=== PATIENT | female | born 1975 | race Asian ===

== ENCOUNTER 2023-11-23 07:05 | Inpatient (IN) | payer BC ==
[~2023-11-23] VITALS: Ht 160 cm; Wt 49.4 kg
[2023-11-23 07:05] VITALS: BP_SYST 97; PULSE 84; RESP 17; TEMP 98.6; O2SAT 99
[2023-11-23] MEDS: NACL 0.9% 1,000 ML IV ONE (09:00)
[2023-11-23 09:08] LABS: BASOPHILS % (AUTO) 0.1 % (0.0-2.0); EOSINOPHILS % (AUTO) 0.3 % (0.0-4.0); HEMATOCRIT 38.6 % (36-48); HEMOGLOBIN 13.3 g/dL (12.0-16.0); LYMPHOCYTES # (AUTO) 0.6 K/uL (1.0-5.5); LYMPHOCYTES % (AUTO) 6.6 % (20.5-51.5); MEAN CORPUSCULAR HEMOGLOBIN 31 pg (27-31); MEAN CORPUSCULAR HGB CONC 34 % (32-36); MEAN CORPUSCULAR VOLUME 91 fL (79.0-98.0); MONOCYTES # (AUTO) 0.4 K/uL (0.0-1.0); NEUTROPHILS # (AUTO) 8.7 K/uL (1.8-7.7); PLATELET COUNT (AUTO) 256 K/uL (130-430); RED BLOOD CELL COUNT(AUTO) 4.25 MIL/uL (4.2-6.2); WHITE BLOOD COUNT (AUTO) 9.8 K/uL (4.8-10.8)
[2023-11-23 09:12] LABS: SERUM HCG (QUALITATIVE) NEGATIVE (NEGATIVE)
[2023-11-23 09:27] LABS: CALCIUM 8.2 mg/dL (8.4-11.0); CREATININE 0.59 mg/dL (0.55-1.30); POTASSIUM 3.7 mmol/L (3.5-5.1); PROTHROMBIN TIME 10.6 SECS (9.5-12.5)
[2023-11-23 10:03] LABS: ALBUMIN 3.1 g/dL (3.4-4.8); BILIRUBIN,DIRECT 0.3 mg/dL (0.0-0.3); TOTAL BILIRUBIN 1.7 mg/dL (0.0-1.0); TOTAL PROTEIN, SERUM 6.7 g/dL (6.4-8.3)
[2023-11-23] MEDS ORDERED: PIPERACILLIN/TAZOBACTAM 3.375 GM/VIAL (ZOSYN) IV ONE ×2 (10:28→14:40)
[2023-11-23] MEDS: MORPHINE 4 MG INJ. 4 MG/ML VIAL IVP ONE (10:42)
[2023-11-23] MEDS: ONDANSETRON HCL 4 MG/2 ML VIAL IVP ONE (10:45)
[2023-11-23] MEDS: PIPERACILLIN/TAZO 3.375 GM in NS 50 ML IV ONE (10:51)
[2023-11-23] MEDS: D5LR 1,000 ML IV SCH (12:29)
[2023-11-23] MEDS ORDERED: ePHEDrine sulfate 50 MG/ML VIAL ONE (14:40)
[2023-11-23] MEDS ORDERED: ROCURONIUM BROMIDE 10 MG/ML (ZEMURON) ONE (14:40)
[2023-11-23] MEDS ORDERED: DEXAMETHASONE SOD PHOSPHATE 4 MG/ML VIAL ONE (14:40)
[2023-11-23] MEDS ORDERED: PROPOFOL 200MG/ 20ML VIAL (DIPRIVAN) IV ONE (14:40)
[2023-11-23] MEDS ORDERED: SUCCINYLCHOLINE CHLORIDE 20 MG/ML(QUELICIN) ONE (14:40)
[2023-11-23] MEDS ORDERED: ONDANSETRON HCL 4 MG/2 ML VIAL ONE (14:40)
[2023-11-23] MEDS ORDERED: LR 1,000 ML IV.SOLN IV ONE (14:40)
[2023-11-23] MEDS ORDERED: SEVOFLURANE 15 MIN GAS INH ONE (14:40)
[2023-11-23] MEDS ORDERED: NS 1000 ML IV.SOLN IV ONE ×2 (14:40)
[2023-11-23] MEDS ORDERED: BUPIVACAINE /PF 0.25% 30 ML VIAL INJ ONE (14:40)
[2023-11-23] MEDS ORDERED: WATER FOR IRRIGATION,STERILE 1,000 ML IRRIG.SOLN IR ONE (14:40)
[2023-11-23] MEDS ORDERED: MORPHINE 4 MG INJ. 4 MG/ML VIAL IVP PRN ×2 (15:30)
[2023-11-23] MEDS ORDERED: NALOXONE HCL 0.4 MG/ML AMP (NARCAN) IVP PRN ×2 (15:30→15:45)
[2023-11-23] MEDS ORDERED: HYDROmorphone 1 MG/ML INJ. CARTRIDGE IVP PRN (15:30)
[2023-11-23] MEDS ORDERED: ACETAMINOPHEN 325 MG TABLET PO PRN (15:45)
[2023-11-23] MEDS ORDERED: ONDANSETRON HCL 4 MG/2 ML VIAL IVP PRN (15:45)
[2023-11-23] MEDS ORDERED: KETOROLAC TROMETHAMINE 15 MG VIAL IVP PRN (15:45)
[2023-11-23] MEDS ORDERED: HYDROcodone/ACETAMIN 5-325 MG TAB (NORCO/ VICODIN) PO PRN (15:45)
[2023-11-23 16:58] VITALS: BP_SYST 95; PULSE 68; RESP 18; TEMP 96.8; O2SAT 98
[2023-11-23 17:00] VITALS: BP_SYST 96; PULSE 68; RESP 18; TEMP 98.1
[2023-11-23 17:12] VITALS: O2SAT 98
[2023-11-23] MEDS: PIPERACILLIN/TAZO 3.375/DEX-IS 50 ML IV SCH (17:45)
[2023-11-23 20:15] VITALS: BP_SYST 96; PULSE 65; RESP 20; TEMP 97.2; TEMP 97.3; O2SAT 97; O2SAT 98
[2023-11-23] MEDS: D5/0.45 NS 1,000 ML IV SCH (21:00)
[2023-11-24 07:10] LABS: BASOPHILS % (AUTO) 0.2 % (0.0-2.0); EOSINOPHILS % (AUTO) 0.1 % (0.0-4.0); HEMATOCRIT 32.4 % (36-48); HEMOGLOBIN 11.1 g/dL (12.0-16.0); LYMPHOCYTES # (AUTO) 0.8 K/uL (1.0-5.5); LYMPHOCYTES % (AUTO) 14.2 % (20.5-51.5); MEAN CORPUSCULAR HEMOGLOBIN 31 pg (27-31); MEAN CORPUSCULAR HGB CONC 34 % (32-36); MEAN CORPUSCULAR VOLUME 91 fL (79.0-98.0); MONOCYTES # (AUTO) 0.3 K/uL (0.0-1.0); MONOCYTES % (AUTO) 5.1 % (1.7-9.3); NEUTROPHILS # (AUTO) 4.6 K/uL (1.8-7.7); NEUTROPHILS % (AUTO) 80.4 % (40.0-70.0); PLATELET COUNT (AUTO) 212 K/uL (130-430); RED BLOOD CELL COUNT(AUTO) 3.55 MIL/uL (4.2-6.2); RED CELL DISTRIBUTION WIDTH 13.4 % (9.0-15.0); WHITE BLOOD COUNT (AUTO) 5.8 K/uL (4.8-10.8)
[2023-11-24 07:40] LABS: ALBUMIN 2.5 g/dL (3.4-4.8); CALCIUM 7.7 mg/dL (8.4-11.0); CREATININE 0.63 mg/dL (0.55-1.30); POTASSIUM 3.9 mmol/L (3.5-5.1); TOTAL BILIRUBIN 0.7 mg/dL (0.0-1.0); TOTAL PROTEIN, SERUM 5.8 g/dL (6.4-8.3)
[2023-11-24 08:00] VITALS: BP_SYST 96; PULSE 58; RESP 18; TEMP 96.7; O2SAT 99
[2023-11-24 08:45] VITALS: O2SAT 99
[2023-11-24 16:10] LABS: BILIRUBIN,URINE NEGATIVE (NEGATIVE); CLARITY/URINE SL CLOUDY (CLEAR); COLOR,URINE YELLOW (YELLOW); GLUCOSE,URINE NEGATIVE (NEGATIVE); KETONES,URINE NEGATIVE (NEGATIVE); LEUKOCYTE ESTERASE ,URINE 3+ (NEGATIVE); NITRITE, URINE NEGATIVE (NEGATIVE); PH,URINE 6.5 (5.0-8.0); PROTEIN URINE NEGATIVE (NEGATIVE); UROBILINOGEN,URINE 0.2 (0.2-1.0)
[2023-11-24 16:38] VITALS: BP_SYST 96; PULSE 60; RESP 20; TEMP 96.7; O2SAT 96
[2023-11-24 16:48] LABS: BLOOD, URINE TRACE (NEGATIVE)
[2023-11-24 16:57] LABS: BACTERIA,URINE FEW /HPF (None Seen); RBC,URINE 0-3 /HPF (0-3); WBC,URINE 20-50 /HPF (0-3)
[2023-11-24 16:58] LABS: MUCUS,URINE None Seen /LPF (None Seen); YEAST,URINE Many /HPF (None Seen)
[2023-11-24] MEDS: LACTOBACILLUS RHAMNOSUS GG 1 CAP CAPSULE PO ONE (18:25)
[2023-11-24 19:00] VITALS: BP_SYST 98; PULSE 60; RESP 16; TEMP 96.6; O2SAT 98
[2023-11-24 20:00] VITALS: BP_SYST 98; PULSE 60; RESP 16; TEMP 96.6; O2SAT 98
[2023-11-24] MEDS: LACTOBACILLUS RHAMNOSUS GG 1 CAP CAPSULE PO SCH (20:39)
[2023-11-25] VITALS: BP_SYST 101; PULSE 62; RESP 16; TEMP 96.2; O2SAT 98
[2023-11-25 06:24] LABS: BASOPHILS % (AUTO) 0.7 % (0.0-2.0); EOSINOPHILS # (AUTO) 0.1 K/uL (0.0-0.4); EOSINOPHILS % (AUTO) 1.2 % (0.0-4.0); HEMATOCRIT 35.2 % (36-48); LYMPHOCYTES # (AUTO) 1.9 K/uL (1.0-5.5); LYMPHOCYTES % (AUTO) 43.9 % (20.5-51.5); MEAN CORPUSCULAR HEMOGLOBIN 31 pg (27-31); MEAN CORPUSCULAR HGB CONC 34 % (32-36); MEAN CORPUSCULAR VOLUME 92 fL (79.0-98.0); MONOCYTES # (AUTO) 0.3 K/uL (0.0-1.0); NEUTROPHILS # (AUTO) 2.1 K/uL (1.8-7.7); NEUTROPHILS % (AUTO) 47.2 % (40.0-70.0); PLATELET COUNT (AUTO) 256 K/uL (130-430); RED BLOOD CELL COUNT(AUTO) 3.85 MIL/uL (4.2-6.2); RED CELL DISTRIBUTION WIDTH 13.1 % (9.0-15.0); WHITE BLOOD COUNT (AUTO) 4.4 K/uL (4.8-10.8)
[2023-11-25 06:59] LABS: ALBUMIN 2.6 g/dL (3.4-4.8); CALCIUM 7.8 mg/dL (8.4-11.0); CREATININE 0.79 mg/dL (0.55-1.30); POTASSIUM 3.4 mmol/L (3.5-5.1); TOTAL BILIRUBIN 0.8 mg/dL (0.0-1.0)
[2023-11-25 08:00] VITALS: BP_SYST 114; PULSE 61; RESP 16; TEMP 98.2; O2SAT 99
[2023-11-25] MEDS: HYDROmorphone 2 MG/ML VIAL ONE (08:30)
[2023-11-25 12:00] VITALS: BP_SYST 118; PULSE 65; RESP 18; TEMP 98.6; O2SAT 99
[2023-11-25 16:00] VITALS: BP_SYST 117; PULSE 68; RESP 16; TEMP 98; O2SAT 99
[2023-11-25 16:30] VITALS: BP_SYST 117; PULSE 64; RESP 16; TEMP 98.2; O2SAT 99
[2023-11-25] MEDS ORDERED: CEPH250C PO (16:34)
[2023-11-25] MEDS: POTASSIUM CHLORIDE 20 MEQ TABLET.ER PO ONE (16:54)
== END 2023-11-25 17:05 | disposition home or self-care (01) | DRG 330 ==
LOC: SED 07:05 → SMU 11:06
PROVIDERS: ADMIT Internal Medicine; ATTEND Internal Medicine
PROC: 0DBH4ZZ Excision of Cecum, Percutaneous Endoscopic Approach (ICD-10-PCS; 2023-11-23)
PROC: 3E1M48Z Irrigation of Peritoneal Cavity using Irrigating Substance, Percutaneous Endoscopic Approach (ICD-10-PCS; 2023-11-23)
PROC: 0DTJ4ZZ Resection of Appendix, Percutaneous Endoscopic Approach (ICD-10-PCS; principal; 2023-11-23 14:44)
DX: K35.32 Acute appendicitis with perforation, localized peritonitis, and gangrene, without abscess (principal); E44.0 Moderate protein-calorie malnutrition; Z68.1 Body mass index [BMI] 19.9 or less, adult; K21.9 Gastro-esophageal reflux disease without esophagitis; E87.6 Hypokalemia; D64.9 Anemia, unspecified; K80.20 Calculus of gallbladder without cholecystitis without obstruction; Z79.899 Other long term (current) drug therapy
CPT/HCPCS: 36415; 80048; 80053; 80076; 81000; 81001; 81015; 82150; 83605; 83690; 84703; 85025; 85610; 85730; 86886; 86900; 86901; 87040; 87070; 87075; 87081; 87086; 87101; 88304; J0330; J1100; J1170; J2270; J2405; J2543; J2704; J3490; J7030; J7120